=== PATIENT | female | born 1950 | race Caucasian/White ===

== ENCOUNTER → 2025-02-09 | Outpatient (CLI) | payer SELFPAY ==
--- NOTE | 2025-02-09 11:39 | MRI_ITS ---
PROCEDURE: SPINE LUMBAR (ROUTINE) 02/09/2025 REASON FOR EXAM: PAIN TECHNIQUE: Multiplanar and multisequence images were obtained without IV contrast administration. COMPARISON: X-ray 01/23/2025 FINDINGS: Vertebrae: No acute fracture. Alignment: Anatomic alignment. Conus Medullaris: L2. L1-2: Unremarkable L2-3: Unremarkable L3-4: Mild bilateral facet hypertrophy and moderate ligamentum flavum hypertrophy. Mild bilobed disc protrusion produces mild spinal stenosis and mild bilateral neural foraminal stenosis. L4-5: Moderate bilateral facet hypertrophy and severe ligamentum flavum hypertrophy. 2 mm of anterolisthesis of L4 on L5 with a moderate broad disc protrusion produces severe spinal stenosis and moderate bilateral neural foraminal stenosis with abutment of the exiting L4 nerve roots bilaterally. L5-S1: Moderate bilateral facet hypertrophy and mild ligamentum flavum hypertrophy. 2 mm of anterolisthesis of L5 on S1 with a mild broad disc protrusion produces mild spinal stenosis and moderate bilateral neural foraminal stenosis with abutment of the exiting L5 nerve roots bilaterally. Sacrum: Unremarkable. Moderate friction related edema of the posterior subcutaneous fat. MRI/Spine Lumbar (Routine) IMPRESSION: Degenerative disc disease as described above. Reading Location: [id number]
== END | disposition home or self-care (01) ==
PROVIDERS: PCP Orthopaedic Surgery; Referring Provider Student in an Organized Health Care Education/Training Program; Visit Provider Student in an Organized Health Care Education/Training Program
DX: M51.16 Intervertebral disc disorders with radiculopathy, lumbar region (principal)
CPT/HCPCS: 72148

== ENCOUNTER 2025-07-03 07:57 | Inpatient (IN) | payer OTHER, SELFPAY ==
--- NOTE | 2025-06-19 10:36 | PAT.ANESEVAL ---
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 When Was Last Pacemaker Check QUESTION #4 FULL TEXT: You/Your Family Experience fever (hyperthermia) with Anesthesia Last Oral Intake Last Oral intake: Last Oral Intake NPO since Meds taken in AM with sips of water? Meds patient instructed to take am of surgery PONV PONV - nuclear medicine officer: PONV - nuclear medicine officer Female Yes 06/19/25 08:30 HX of Motion Sickness No 06/19/25 08:30 HX of N/V After Surgery No 06/19/25 08:30 Non-Smoker Yes 06/19/25 08:30 Duration of Surgery greater Yes 06/19/25 08:30 than 60 minutes Number of Risk Factors 3 06/19/25 08:30 PONV Score Moderate Risk 06/19/25 08:30 Height & Weight Height & Weight: Anesthesia: Height & Weight Height 5 ft 01/23/25 10:03 Respiratory Assessment Respiratory Assessment - nuclear medicine officer: Respiratory Tract Infection Hx - nuclear medicine officer Hx Respiratory Tract Infection No 06/19/25 08:30 STOP Sleep Apnea STOP Sleep Apnea - nuclear medicine officer: STOP Sleep Apnea - nuclear medicine officer Hx Hypertension Yes: PER PT, CONTROLLED ON 06/19/25 08:30 MEDS Hx Sleep Apnea Yes: NO MACHINE 06/19/25 08:30 CPAP No 06/19/25 08:30 BIPAP No 06/19/25 08:30 Do you snore loudly (louder than talking or can be heard Do you often feel tired/ fatigued/ sleepy during daytime? Has anyone observed you stop breathing during sleep? STOP Results Positive 06/19/25 08:30 QUESTION #5 FULL TEXT : Do you snore loudly (louder than talking or can be heard through closed doors)? 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 Specify any problems Hx of Preganancy in last 3 No 06/19/25 08:30 Months Nurse Filling Out Transfusion MGRIFFITH 06/19/25 08:30 & Questions: Date: 06/19/25 06/19/25 08:30 Time: 08:34 06/19/25 08:30 Patient unable to answer at this time (ie. confused, unrespo /Reproduction History /Reproductive History - nuclear medicine officer: /Reproductive Hx- nuclear medicine officer Hx Now No 06/19/25 08:30 Gestational Age (in weeks): EDC: Hx Hx Para Hx Section SAB No 06/19/25 08:30 [facility] Medical History (Updated 06/19/25 @ 08:47 by Jacklyn Abdul) Wears glasses Wears dentures Post-menopausal Depression Arthritis Ambulates with cane High cholesterol History of DVT (deep vein thrombosis) Injury of back Essential tremor History of ulceration Sleep apnea Shortness of breath on exertion History of edema Non-smoker Hypertension delivery affecting High blood pressure Home Medications ?Medication ?Instructions ?Recorded ?Last Taken ?Type cholecalciferol (vitamin D3) 10 10 mcg PO QDAY supplement 01/23/25 Unknown History mcg (400 unit) capsule hydrochlorothiazide 12.5 mg capsule 12.5 mg PO QAM BLOOD PRESSURE 01/23/25 Unknown History duloxetine 60 mg capsule,delayed 60 mg PO DAILY DEPRESSION 06/19/25 Unknown History release potassium chloride 20 mEq 40 meq PO TID SUPPLEMENT 06/19/25 Unknown History tablet,extended release (K-Tab) simvastatin 40 mg tablet 40 mg PO DAILY HLD 06/19/25 Unknown History topiramate 50 mg tablet 50 mg PO DAILY ESSENTIAL TREMORS 06/19/25 Unknown History Allergy/AdvReac Type Severity Reaction Status Date / Time Cephalosporins Allergy Severe Hives Verified 06/19/25 08:19 Family History Mother No problems noted. Father No problems noted. Grandmother No problems noted. Grandfather No problems noted. Surgical History (Updated 06/19/25 @ 08:30 by Jacklyn Abdul) History of hysterectomy History of History of total right knee replacement (TKR) History of total left knee replacement (TKR) Hx of tonsillectomy Social History Smoking Status: Never smoker alcohol intake: never Audit: Pertinent Findings Pertinent Findings EKG Perinent findings: June 11, 2025. Normal sinus rhythm. Poor anterior R wave progression. Compared to EKG of October 2022, the QT has shortened. Recommendation Anesthesia Recommendation Anesthesia recommendation: F/U recommended (Potassium on June 11, 2025 is 2.8. Patient is getting supplemental potassium and will have a recheck done on June 20, 2025. Need to check results before surgery.)
[2025-06-21 13:18] LABS: Magnesium 2.3 mg/dL (1.5-2.2)
--- NOTE | 2025-06-21 16:57 | PAT.ANESEVAL ---
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 When Was Last Pacemaker Check QUESTION #4 FULL TEXT: You/Your Family Experience fever (hyperthermia) with Anesthesia Last Oral Intake Last Oral intake: Last Oral Intake NPO since Meds taken in AM with sips of water? Meds patient instructed to take am of surgery PONV PONV - licensed mass real estate appraiser: PONV - licensed mass real estate appraiser Female Yes 06/19/25 08:30 HX of Motion Sickness No 06/19/25 08:30 HX of N/V After Surgery No 06/19/25 08:30 Non-Smoker Yes 06/19/25 08:30 Duration of Surgery greater Yes 06/19/25 08:30 than 60 minutes Number of Risk Factors 3 06/19/25 08:30 PONV Score Moderate Risk 06/19/25 08:30 Height & Weight Height & Weight: Anesthesia: Height & Weight Height 5 ft 06/21/25 10:00 Respiratory Assessment Respiratory Assessment - licensed mass real estate appraiser: Respiratory Tract Infection Hx - licensed mass real estate appraiser Hx Respiratory Tract Infection No 06/19/25 08:30 STOP Sleep Apnea STOP Sleep Apnea - licensed mass real estate appraiser: STOP Sleep Apnea - licensed mass real estate appraiser Hx Hypertension Yes: PER PT, CONTROLLED ON 06/19/25 08:30 MEDS Hx Sleep Apnea Yes: NO MACHINE 06/19/25 08:30 CPAP No 06/19/25 08:30 BIPAP No 06/19/25 08:30 Do you snore loudly (louder than talking or can be heard Do you often feel tired/ fatigued/ sleepy during daytime? Has anyone observed you stop breathing during sleep? STOP Results Positive 06/19/25 08:30 QUESTION #5 FULL TEXT : Do you snore loudly (louder than talking or can be heard through closed doors)? 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 Specify any problems Hx of Preganancy in last 3 No 06/19/25 08:30 Months Nurse Filling Out Transfusion MGRIFFITH 06/19/25 08:30 & Questions: Date: 06/19/25 06/19/25 08:30 Time: 08:34 06/19/25 08:30 Patient unable to answer at this time (ie. confused, unrespo /Reproduction History /Reproductive History - licensed mass real estate appraiser: /Reproductive Hx- licensed mass real estate appraiser Hx Now No 06/19/25 08:30 Gestational Age (in weeks): EDC: Hx Hx Para Hx Section SAB No 06/19/25 08:30 [facility] Medical History Wears glasses Wears dentures Post-menopausal Depression Arthritis Ambulates with cane High cholesterol History of DVT (deep vein thrombosis) Injury of back Essential tremor History of ulceration Sleep apnea Shortness of breath on exertion History of edema Non-smoker Hypertension delivery affecting High blood pressure Home Medications ?Medication ?Instructions ?Recorded ?Last Taken ?Type cholecalciferol (vitamin D3) 10 10 mcg PO QDAY supplement 01/23/25 Unknown History mcg (400 unit) capsule hydrochlorothiazide 12.5 mg capsule 12.5 mg PO QAM BLOOD PRESSURE 01/23/25 Unknown History duloxetine 60 mg capsule,delayed 60 mg PO DAILY DEPRESSION 06/19/25 Unknown History release potassium chloride 20 mEq 40 meq PO TID SUPPLEMENT 06/19/25 Unknown History tablet,extended release (K-Tab) simvastatin 40 mg tablet 40 mg PO DAILY HLD 06/19/25 Unknown History topiramate 50 mg tablet 50 mg PO DAILY ESSENTIAL TREMORS 06/19/25 Unknown History Allergy/AdvReac Type Severity Reaction Status Date / Time Cephalosporins Allergy Severe Hives Verified 06/21/25 10:03 Family History Mother No problems noted. Father No problems noted. Grandmother No problems noted. Grandfather No problems noted. Surgical History History of hysterectomy History of History of total right knee replacement (TKR) History of total left knee replacement (TKR) Hx of tonsillectomy Social History Smoking Status: Never smoker alcohol intake: never Audit: Pertinent Findings HISTORY of Pertinent Findings History of Pertinent Findings: EKG Pertinent Findings EKG Perinent findings June 11, 2025. Normal 06/19/25 10:39 sinus rhythm. Poor anterior R wave progression. Compared to EKG of October 2022, the QT has shortened. Recommendation Anesthesia Recommendation Anesthesia recommendation: OPTIMIZED for anesthesia (Most recent potassium is 4.2. Patient is cleared for upcoming surgery.)
[2025-07-03] VITALS (16 sets, daily range): BP systolic 123–159; BP diastolic 61–111; PULSE 57–66; RESP 14–18; TEMP 36–36.8; O2SAT 96–100; BMI 46.4
[2025-07-03] MEDS: Magnesium 1 GM over 15 mins IV (08:47)
[2025-07-03] MEDS: Lactated Ringers 1,000 ML 15 ML IV (08:47)
--- NOTE | 2025-07-03 09:55 | PCM.HP.BLA ---
History and Physical Date of Admission: 07/03/25 MR#: [id number] Acct: [id number] Name: TAWANA DODGE Rep #: [id number] : 1950 Provider: Dr. Mohinder Ching MD Age/Sex: 74/F Location: [facility] [place] Status: Signed Intake Vital Signs 01/23/2510:03 06/21/2510:00 Height 5 ft 5 ft Weight: 234 lb 239 lb BMI 45.7 46.6 Intake Visit Reasons: lumbar spine Chief Complaint: Lumbar spine pre op Accompanied by: Daughter Is patient in pain?: Yes Pain scale (1-10): 8 Allergies Cephalosporins Allergy (Severe, Verified 06/21/25 10:03) Hives Medications ?Medication ?Instructions ?Recorded ?Confirmed ?Type cholecalciferol (vitamin D3) 10 10 mcg PO QDAY supplement 01/23/25 06/21/25 History mcg (400 unit) capsule hydrochlorothiazide 12.5 mg capsule 12.5 mg PO QAM BLOOD PRESSURE 01/23/25 06/21/25 History duloxetine 60 mg capsule,delayed 60 mg PO DAILY DEPRESSION 06/19/25 06/21/25 History release potassium chloride 20 mEq 40 meq PO TID SUPPLEMENT 06/19/25 06/21/25 History tablet,extended release (K-Tab) simvastatin 40 mg tablet 40 mg PO DAILY HLD 06/19/25 06/21/25 History topiramate 50 mg tablet 50 mg PO DAILY ESSENTIAL TREMORS 06/19/25 06/21/25 History Have you fallen in the past year?: No PFSH Medical History Wears glasses Wears dentures Post-menopausal Depression Arthritis Ambulates with cane High cholesterol History of DVT (deep vein thrombosis) Injury of back Essential tremor History of ulceration Sleep apnea Shortness of breath on exertion History of edema Non-smoker Hypertension delivery affecting High blood pressure Surgical History History of hysterectomy History of History of total right knee replacement (TKR) History of total left knee replacement (TKR) Hx of tonsillectomy Family History Mother No problems noted. Father No problems noted. Grandmother No problems noted. Grandfather No problems noted. Social History Smoking Status: Never smoker alcohol intake: never HPI lumbar spine Details: This documentation accurately reflects the service provided and the decisions made by me, Dr. Mohinder Ching MD 06/21/25 1000. Part of today?s visit was documented by Jennifer Lay MA, acting as scribe. TAWANA DODGE is a 74 year old F here today for lumbar spine pre op. Patient states that her pain is a 3 today. She would like to talk about the surgery and how long it will take. Patient would like to know what she is able to do after surgery and what she is not aloud to do. She states that she hasn't had any injections in her lower back. Her physical therapy was at her house, and she states that the physical therapy made her pain worse in the lower back. The patient is a 74-year-old female presenting with lumbar radiculopathy. She reports pain originating in the lower back, radiating down the leg, and extending to the ankle, but not affecting the foot or toes. The pain is primarily on the outer side of the leg and is associated with weakness and shakiness after walking short distances. The patient has a history of knee replacement surgery eight years ago, after which she initially stopped using a cane but resumed its use four years ago due to balance issues. She reports that balance problems have progressively worsened over the years, necessitating the use of a cane for stability. The patient also experiences essential tremors, for which she is on medication prescribed by her primary care physician. She has not been diagnosed with Parkinson's disease or any other neurological condition. Recently, the patient was found to have hypokalemia during preoperative blood work, which is being managed with potassium supplements. She was advised to monitor for symptoms such as chest pain and to ensure potassium levels are normalized before surgery. - Musculoskeletal: Reports lower back pain radiating to the leg, weakness, and shakiness after walking short distances. - Neurological: Reports tremors in hands, denies diagnosis of Parkinson's disease. - Cardiovascular: Denies chest pain, but advised to monitor for it due to hypokalemia. Attestation: Documentation on this patient encounter was supported using ambient scribe technology/ voice AI technology. The patient consented to recording for the purpose of documenting the encounter. Provider reviewed content of the generated note prior to signature. HPI from 01/23/25: TAWANA DODGE is a 74 year old F here today for lumbar spine pain. Patient states that she has had this for a long time. It has been gradually getting worse since she has gotten older. The pain is a constant pain that makes her weak. She can't stand for a long period of time. When she walks it feels like her left knee is giving out. The pain goes down into both hips then goes down the left leg. Patient denies any numbness or tingling. The pain wakes her up at night when it's really bad. Denies any back surgery or injections. Patient had therapy in October but it seems liked it aggravated her pain. Been using a cane for several years and helps with her back pain and balance. Had her knees replaced in 2004 and 2016. She has seen [facility] in the past for her knees. Pain goes into the left groin and down the lateral left leg and gets pain behind her knee. pain over the anterolateral lower leg to the big toe. Says that she can walk just a short distance before her pain gets worse and she needs to sit down. Says that this is typically related to just 30 to 50 feet. Takes ibuprofen over the counter with Tylenol with some benefit. No diabetes, no heart or lung issues, no blood thinners. Ortho Exam General General: Yes no acute distress Neurologic: Yes alert and Yes oriented x3 Psychologic: Yes reasonable and appropriate Spine SPINE TESTING CERVICAL THORACIC LUMBAR Musculoskeletal Strength 0=absent - 5=normal Details: Neurological exam of the lower extremities shows 5x5 power. Normal sensations across all dermatomes. No hyperreflexia. No midline tenderness, right paraspinal tenderness. Coding Level of Care Code Off vis,est,level 4 Diagnoses Lumbar stenosis with neurogenic claudication M48.062 Spondylolisthesis at L4-L5 level M43.16 Degeneration of intervertebral disc of lumbar region with discogenic back pain and lower extremity pain M51.362 Disc-related pain type: discogenic back pain and lower extremity pain Lumbar radiculopathy M54.16 Time Spent (min) 35 Assessment and Plan Assessment and Plan (1) Lumbar stenosis with neurogenic claudication: Status: Acute (2) Spondylolisthesis at L4-L5 level: Status: Acute (3) Degenerative disc disease, lumbar: Status: Acute Qualifiers: Disc-related pain type: discogenic back pain and lower extremity pain Qualified Code(s): M51.362 - Other intervertebral disc degeneration, lumbar region with discogenic back pain and lower extremity pain (4) Lumbar radiculopathy: Status: Acute Plan Again reviewed prior X-rays show a subtle L4 on L5 spondylolisthesis, multilevel disc height loss seen throughout her lumbar spine. There is also a subtle L2 on L3 retrolisthesis. Reviewed MRI from February 09, 2025 which showed L4-5 anterolisthesis with a moderate broad-based disc protrusion which produces severe spinal stenosis and moderate bilateral neuroforaminal stenosis. 1. Lumbar radiculopathy - Scheduled for lumbar spine surgery to relieve nerve compression. - Postoperative physical therapy planned to enhance mobility and balance. 2. Essential tremor - Managed with current medication. - Consider future neurologist referral if symptoms persist. 3. Hypokalemia - Managed with potassium supplements. - Ensure normalization of potassium levels before surgery. - Continue taking potassium supplements as prescribed to correct low potassium levels. - Monitor for symptoms such as chest pain and seek immediate medical attention if they occur. - Follow postoperative instructions, including engaging in physical therapy to improve mobility and balance. Explained the imaging findings in detail. Explained options today with the patient which includes further conservative treatment with physical therapy and pain management versus surgery. Discussed that surgery would involve a L4-5 fusion due to the spondylolisthesis. Discussed this procedure in detail and explained the risks, benefits and alternatives. The risks of surgery include but are not limited to infection, bleeding, injury to nerves or vessels, need for further surgery, ileus, vascular injury, visceral injury, DVT, pulmonary embolism, pneumonia, atelectasis, cardiopulmonary event, pseudoarthrosis, hardware failure, gait abnormality, adjacent segment degeneration. Discussed post-surgery restrictions in detail such as no bending, lifting, or twisting. Answered all questions to the patient?s satisfaction. Patient understands and agrees to proceed with surgery. Consent was signed.Follow up 2 week post operatively or sooner if pain, swelling, numbness or associated symptoms, or concerns develop. All questions answered. Patient in agreement of plan.
--- NOTE | 2025-07-03 10:04 | PRE.ANES_ITS ---
ASA Classification* ASA Classification ASA Classification: 3 Assessment & Plan Anesthesia* Anesthesia Assessment Anesthesia Assessment: Discussed sedation and/or anesthesia options, risks, benefits, and alternatives with patient/parents/legal guardian/POA. Questions invited. The patient/parents/legal guardian/POA seems to understand and agrees to proceed with anesthesia plan. Reviewed the physical assessment, medical history, allergy history and patient home medications list prior to surgery/procedure/anesthetic and documented any changes. Performed airway and anesthesia risk assessments. Anesthesia Type Anesthesia Type: General History Source History Obtained from:: Patient and Chart Anesthesia Focused Assessment* Temperature: 98.2 F Pulse Rate: 66 Blood Pressure: 130/69 Respiratory Rate: 18 Pulse Ox: 96 Oxygen Delivery Method: Room Air Airway Assessment Mouth opens: >3 cm Mallampati Score: III Teeth Condition: Dentures (Patient had full upper and lower dentures which are out.) Neck Range of motion (ROM): Limited ROM (Severe Restriction) Labs Anesthesia Preop lab: CBC CHEMISTRY Magnesium 2.3 mg/dL (1.5-2.2) H 06/21/25 11:25 06/21/25 POC Glucose 160 mg/dL (74-106) H 07/03/25 08:49 07/03/25 COAG Pre-Assessment Diagnosis/Proposed Procedure Planned Operative Procedure(s): ERAS, 360 Lumbar Fusion L4-5 Anesthesia History Anesthesia History - sap solution manager consultant: Anesthesia History - sap solution manager consultant Hx Hospitalization No 06/19/25 08:30 Any Problems With Anesthesia No 06/19/25 08:30 Cholinesterase deficiency No 06/19/25 08:30 You/Your Family Experience No 06/19/25 08:30 fever (hyperthermia) with Relationship Recent Exposure to Contagious No 07/03/25 08:34 Disease Does patient have nerve No 06/19/25 08:30 stimulator Patient instructed to have device shut off --Does patient have Pacemaker No 07/03/25 08:34 or ICD? When Was Last Pacemaker Check QUESTION #4 FULL TEXT: You/Your Family Experience fever (hyperthermia) with Anesthesia Last Oral Intake Last Oral intake: Last Oral Intake NPO since 18:30 07/03/25 08:34 Meds taken in AM with sips of No 07/03/25 08:34 water? Meds patient instructed to take am of surgery Any additional information?: Yes NPO since: 06:00 (Patient took her preop Ensure at 6 AM.) PONV PONV - sap solution manager consultant: PONV - sap solution manager consultant Female Yes 06/19/25 08:30 HX of Motion Sickness No 06/19/25 08:30 HX of N/V After Surgery No 06/19/25 08:30 Non-Smoker Yes 06/19/25 08:30 Duration of Surgery greater Yes 06/19/25 08:30 than 60 minutes Number of Risk Factors 3 06/19/25 08:30 PONV Score Moderate Risk 06/19/25 08:30 Height & Weight Height & Weight: Anesthesia: Height & Weight Height 4 ft 11.84 in 07/03/25 08:34 Weight: 107.3 kg 07/03/25 08:34 Body Mass Index (BMI) 46.4 07/03/25 08:34 Respiratory Assessment Respiratory Assessment - sap solution manager consultant: Respiratory Tract Infection Hx - sap solution manager consultant Hx Respiratory Tract Infection No 06/19/25 08:30 STOP Sleep Apnea STOP Sleep Apnea - sap solution manager consultant: STOP Sleep Apnea - sap solution manager consultant Hx Hypertension Yes: PER PT, CONTROLLED ON 06/19/25 08:30 MEDS Hx Sleep Apnea Yes: NO MACHINE 06/19/25 08:30 CPAP No 06/19/25 08:30 BIPAP No 06/19/25 08:30 Do you snore loudly (louder than talking or can be heard Do you often feel tired/ fatigued/ sleepy during daytime? Has anyone observed you stop breathing during sleep? STOP Results Positive 06/19/25 08:30 QUESTION #5 FULL TEXT : Do you snore loudly (louder than talking or can be heard through closed doors)? Tobacco Use History Tobacco Use History - sap solution manager consultant: Tobacco Use History - sap solution manager consultant Tobacco Use Smoking Status Never smoker 06/19/25 08:30 Hx Tobacco Use No 06/19/25 08:30 Years Smoking Packs Smoked per Day Smoking Cessation Date was within the last 15 years Hx Smoking Cessation Date Hx Smoking Cessation Counseling Hematologic Medial History Hematologic Hx - sap solution manager consultant: Hematologic Medical Hx - special agent fbi Hx of Blood Transfusion Yes 06/19/25 08:30 Hx of Transfusion in last 3 No 06/19/25 08:30 Months Date of Last Transfusion (if within last 3 months) Ever experience any problems No 06/19/25 08:30 with transfusion(s)? Specify any problems Hx of Preganancy in last 3 No 06/19/25 08:30 Months Nurse Filling Out Transfusion MGRIFFITH 06/19/25 08:30 & Questions: Date: 06/19/25 06/19/25 08:30 Time: 08:34 06/19/25 08:30 Patient unable to answer at this time (ie. confused, unrespo /Reproduction History /Reproductive History - sap solution manager consultant: /Reproductive Hx- sap solution manager consultant Hx Now No 06/19/25 08:30 Gestational Age (in weeks): EDC: Hx Hx Para Hx Section SAB No 06/19/25 08:30 Active Medications Active Medications: Current Medications Generic Name Dose Route Start Last Admin Trade Name Freq PRN Reason Stop Dose Admin Clindamycin Phosphate 900 mg in 50 mls @ 75 mls/hr 07/03/25 10:00 Cleocin IV 07/03/25 10:39 INTRAOP ONE Tranexamic Acid 1,000 mg/ 110 mls @ 440 mls/hr 07/03/25 10:00 Sodium Chloride IV 07/03/25 10:14 INTRAOP ONE Tranexamic Acid 1,000 mg/ 110 mls @ 440 mls/hr 07/03/25 10:00 Sodium Chloride IV 07/03/25 10:14 INTRAOP ONE Magnesium Sulfate 1 gm/ 102 mls @ 408 mls/hr 07/03/25 10:00 07/03/25 09:46 Dextrose IV 07/03/25 10:14 Infused PREOP ONE Infusion Lactated Ringer's 1,000 mls @ 15 mls/hr 07/03/25 08:15 07/03/25 08:47 IV 15 mls/hr .Q48H FRANKLIN Administration Insulin Human Lispro 1 - 6 unit 07/03/25 10:00 Insulin Lispro 100 Unit/Ml Insuln.Pen SC Q4H PRN PRN BG>/= 180, SEE PROTOCOL Protocol PFSH Medical History Wears glasses Wears dentures Post-menopausal Depression Arthritis Ambulates with cane High cholesterol History of DVT (deep vein thrombosis) Injury of back Essential tremor History of ulceration Sleep apnea Shortness of breath on exertion History of edema Non-smoker Hypertension delivery affecting High blood pressure Home Medications ?Medication ?Instructions ?Recorded ?Last Taken ?Type cholecalciferol (vitamin D3) 10 10 mcg PO QDAY supplem ent 01/23/25 07/02/25 History mcg (400 unit) capsule hydrochlorothiazide 12.5 mg capsule 12.5 mg PO QAM BLO OD PRESSURE 01/23/25 07/02/25 History duloxetine 60 mg capsule,delayed 60 mg PO DAILY DEPRES RAMIREZ 06/19/25 07/02/25 History release potassium chloride 20 mEq 40 meq PO TID SUPPLEMENT 12/1207/02/25 History tablet,extended release (K-Tab) simvastatin 40 mg tablet 40 mg PO DAILY HLD 06/19/25 07/02/25 History topiramate 50 mg tablet 50 mg PO DAILY ESSENTIAL DK MORS 06/19/25 07/02/25 History Allergy/AdvReac Type Severity Reaction Status Date / Time Cephalosporins Allergy Severe Hives Verified 06/21/25 10:03 Family History Mother No problems noted. Father No problems noted. Grandmother No problems noted. Grandfather No problems noted. Surgical History History of hysterectomy History of History of total right knee replacement (TKR) History of total left knee replacement (TKR) Hx of tonsillectomy Social History Smoking Status: Never smoker alcohol intake: never Review of Systems (Anesthesia) ROS Narrative System reviewed and no additional complaints, except as documented.
--- NOTE | 2025-07-03 10:19 | RAD_ITS ---
PROCEDURE: LUMBAR SPINE 2 OR 3 VIEWS 07/03/2025 REASON FOR EXAM: 360 FUSION L4-5 TECHNIQUE: Procedure Code: RADSPLL Modality: DX Procedure: LUMBAR SPINE 2 OR 3 VIEWS Fluoroscopy time: 43 seconds Total images: 14 COMPARISON: July 04, 2025 FINDINGS: Fluoroscopic spot images were obtained over the lower lumbar spine. It is assumed that there are 5 lumbar type vertebral bodies. Initial images show localization of the L4/5 disc space. Subsequent imaging shows disc spacer placement followed by an anterior screw. Then, pedicle screws and rods were placed at L4 and L5. Alignment is anatomic. RAD/Lumbar Spine 2 or 3 Views IMPRESSION: Fluoroscopic localization and guidance. Correlate with procedural note. Reading Location: [id number]
[2025-07-03] MEDS: Midazolam 2 MG/2 ML Syringe IV (10:52)
[2025-07-03] MEDS: Lidocaine 1% (5 ml sdv) 5 ML Vial 10 ML IV (10:58)
[2025-07-03] MEDS: PROPOFOL 204.33 MG IV (11:00)
[2025-07-03] MEDS: fentaNYL 100 MCG/2 ML Ampul 200 MCG IV (13:29)
[2025-07-03] MEDS: TRANEXAMIC ACID 1,000 MG/10 ML ML 2000 MG IV (14:00)
--- NOTE | 2025-07-03 14:44 | PCM.OPRPT ---
Procedures Musculoskeletal [id number]: Other Procedure See Report Operative Report (Standard) Operative Information Date of Procedure: 07/03/25 Pre-Operative Diagnosis: L4-5 spondylolisthesis, stenosis with neurogenic claudication Post-Operative Diagnosis: Same Surgery/Procedure Performed: L4-5 oblique lumbar lumbar fusion plaster patternmaker: Yes Zipper Machine Operator: Elizabeth Carpenter Tasks completed by assisted living housekeeper: Closing, Removing tissue, Hemostasis: Electrocautery and Retracting Type of Anesthesia: General RN Documented Start/Stop Times: Operation Date: 07/03/25 10:00 Case Time Into Pre-Op 07/03/25 08:08 Out of Pre-Op 07/03/25 10:51 Anesthesia Start 07/03/25 10:52 Into Room 07/03/25 10:52 Procedure Start 07/03/25 11:37 Procedure End 07/03/25 14:26 Anesthesia End 07/03/25 14:36 Out of Room 07/03/25 14:36 Procedure Start Time: 11:37 Procedure Stop Time: 14:26 Select all DRAINS/GRAFTS/IMPLANTS that apply: Graft Graft details: Allograft cancellous chips, autologous iliac crest bone marrow aspirate and Implanted device Implanted device details: DePuy cougar lateral lumbar interbody cage?peek Estimated Blood Loss: 100 cc Specimen collected: No Description of surgery: Preoperative diagnosis: L4-5 spondylolisthesis, disc degeneration, stenosis with neurogenic claudication Postoperative diagnosis: Same Name of procedures L4-5 oblique lumbar interbody fusion (OLIF), minimally invasive left sided approach, lateral decubitus: ? L4-5 anterolateral spinal fusion ? L4-5 insertion of cage ? Bone graft aspirate left iliac crest separate incision ? Allograft cancellous chips Attending Surgeon: Dr. Mohinder Ching Estimated blood loss: 100 mL Anesthesia: General Complications: None Indications: Patient is a 74-year-old pleasant lady who has had a long history of low back pain and left lower extremity radiation, difficulty walking distances. Xrays & MRI revealed L4-5 spondylolisthesis, severe stenosis. After undergoing a prolonged period of nonoperative treatment, the patient elected to undergo surgical decompression & fusion. All surgical options were discussed with the patient including anterior and posterior approaches. All risks and benefits associated with the procedure were explained to the patient. The risks include but are not limited to infection, bleeding, injury to nerves and vessels including major vessels like IVC and aorta, persistent paresthesia, persistent pain, dural tear, need for further procedures, adjacent segment degeneration, pseudoarthrosis, hardware failure, retrograde ejaculation, paralytic ileus, etc. Procedure: The patient was identified in the preoperative holding suite using Unique patient identifiers. Skin was marked, consent was reviewed, and all questions were answered. The patient was then brought back to the operative room. A surgical timeout was performed to make sure correct procedure was being done on the correct patient and all operative room staff were on the same page. General endotracheal anesthesia was then given to the patient. Sommers catheter was inserted. The patient was then carefully positioned in right lateral decubitus position with the left side up on a regular OR table. Axillary roll was placed and all bony prominences were well- padded. Hip positioners were placed in the posterior buttocks and anterior sternal area. The surgical area was prepped and draped in usual fashion. Preoperative antibiotic was injected IV as preoperative antibiotic. A final timeout was then again done just before starting the procedure. A 2 inch incision oblique was taken in the left lower quadrant of the abdomen 2 fingerbreadths away from the iliac crest and the lower ribs. Sharp dissection with Bovie was carried out up to the fascia covering the external oblique. The external oblique, internal oblique and transversus abdominis muscles were split along the muscle fibers and retroperitoneal space was entered. Sponge sticks were utilized to move the bowel and peritoneum [id number]-way and psoas muscle was exposed staying within the retroperitoneal plane. appAttachframe retractor system was positioned and the retractor blade was applied onto the psoas. The interval between psoas and midline structures was developed and appropriate retractors were placed. Once adequate interval was cleared, a disc space was identified and a marker x-ray was taken. This identified the L4-5 disc level. The prepsoas interval was then traced inferiorly. Annulotomy was done with a long handled knife. Pituitary was used to remove disc material. Curettes were used to prepare the endplates. Disc space spreaders were utilized to distract and increase the disc height. Near complete discectomy was performed. Smaller disc distractors were also used to bluntly perform a contralateral annulotomy. Trials of serially increasing sizes were used. A Jamshidi needle was used to aspirate bone marrow from the left anterior iliac crest through a separate incision and this aspirate was mixed with the allograft bone chips. A Depuy Mantee cage of size of the 18 x 50 x 12 mm with 15 degrees lordosis was packed with corticocancellous allograft bone chips mixed with bone marrow aspirate. This was inserted into the L4-5 disc space. Some bone chips were also packed around the cages. Screw with washer was placed into the lower L4 body with a washer partially covering the cage at L4-5. Hemostasis was confirmed. The retractor blades were removed. Closure was done in layers with a continuous strand of # 1 Vicryl in all muscle layers. 2-0 Vicryl was used for subcutaneous tissue and 4-0 for Monocryl for the skin. Steri-Strips were applied and 4 x 4 gauze and Tegaderm were applied. Grounds Foreman Elizabeth Carpenter PA-C. My physician assistant spa director was a vital part of this case. They were important in appropriate retraction during the case, and protection of soft tissues during the procedure. Their intimate knowledge of the case and my steps aided in safe and expedient completion of the procedure as well as appropriate position of the patient during the surgery. They were also vital in assisting with closure under my direct supervision. Surgical Findings: See operative note Complications Complications: No
--- NOTE | 2025-07-03 14:47 | PCM.POST.ANE ---
Anesthesia: Postop Eval I Current Vital Signs Temperature: 96.8 F Pulse Rate: 59 Blood Pressure: 132/61 Respiratory Rate: 16 Pulse Ox: 100 Oxygen Delivery Method: Room Air Assessment Airway patent: Yes Spontaneous unlabored respirations: Yes Mental status: Awake and Calm nausea: No Vomiting: No Anesthesia Complication: No Fluid Hydration Crystalloid volume administer (ml): 1,500 Total IV fluid infused: 1,500 Progress Note Anesthesia document: Postop Eval 1 completed: No
--- NOTE | 2025-07-03 14:52 | PCM.OPRPT ---
Procedures Musculoskeletal 20xxx-29xxx: Other Procedure See Report Operative Report (Standard) Operative Information Date of Procedure: 07/03/25 Pre-Operative Diagnosis: L4-5 spondylolisthesis, stenosis with neurogenic claudication Post-Operative Diagnosis: Same Surgery/Procedure Performed: L4-5 posterior spinal instrumented fusion sports management internship: Yes Hat Maker: Elizabeth Carpenter Tasks completed by heel sprayer first: Closing, Removing tissue, Implanting device, Hemostasis: Electrocautery and Retracting Type of Anesthesia: General RN Documented Start/Stop Times: Operation Date: 07/03/25 10:00 Case Time Into Pre-Op 07/03/25 08:08 Out of Pre-Op 07/03/25 10:51 Anesthesia Start 07/03/25 10:52 Into Room 07/03/25 10:52 Procedure Start 07/03/25 11:37 Procedure End 07/03/25 14:26 Anesthesia End 07/03/25 14:36 Out of Room 07/03/25 14:36 Procedure Start Time: 11:37 Procedure Stop Time: 14:26 Select all DRAINS/GRAFTS/IMPLANTS that apply: Graft Graft details: Allograft cancellous chips and Implanted device Implanted device details: DePuy Stream5er prime pedicle screw instrumentation Estimated Blood Loss: 100 cc Specimen collected: No Description of surgery: Preoperative diagnosis: L4-5 spondylolisthesis, disc degeneration, stenosis with neurogenic claudication Postoperative diagnosis: Same Name of procedures: L4-5 posterior percutaneous pedicle screw instrumented fusion, prone: ? L4-5 posterior spinal fusion 22721 ? L4-5 posterior pedicle screw instrumentation [id number] ? Allograft cancellous chips [id number] Attending Surgeon: Dr. Mohinder Ching Estimated blood loss: 100 mL (total for entire case) Anesthesia: General Complications: None Description of procedure: After the anterior procedure was complete, the patient was then turned supine. The patient was then transferred to Kyle table in prone position. Back was prepped and draped in usual fashion. C-arm AP view was then taken. C-arm was positioned in a way that L4 was centralized and superior endplate of was parallel to the beam. Spinous process was centered between the pedicles. Midline was marked with skin marker and lateral borders of the pedicles were also marked. Skin marker was also utilized to man transversely across the middle of the pedicles at L4. 2 longitudinal paramedian incisions of 1 inch were placed. The fascia was incised vertically. Finger dissection was utilized to palpate the transverse process and facet joint. Viper Prime screws with towers were inserted and docked onto the transverse processes. This was then slowly moved medially to reach the superior articular process of L4. This was then confirmed on C-arm and then a mallet was utilized to drive the trocar into the pedicle going up to the medial wall of the pedicle on AP view. This was performed both sides. C-arm lateral view confirmed that the tip of the trocar was in the vertebral body, and the screw was advanced into the pedicle and vertebral body. This was repeated similarly at L5 bilaterally. Screw sizes were 7 x 45 mm at L4 and L5 on both sides. 40 mm precontoured titanium 5.5 mm lordotic darlnig on the right and 45 mm on the left were then passed through the screw extensions and reduced down to the screws with the help of [employer] Viper instrumentation system on both sides. AP and lateral view of the C-arm showed good positioning of the screws and cages. Final tightening with the torque screwdriver was then completed. Adel was utilized to roughen the facet joint at L4-5 on the right side. Cancellous allograft bone chips mixed with bone marrow aspirate were then placed over this decorticated area. Hemostasis was achieved. Closure was done in layers with 0 Vicryls for the fascia, 2-0 Vicryls for the subcutaneous tissue, and Monocryl for the skin. Dermabond was applied. Dressings were applied covered with Tegaderm. The patient was then turned supine onto a hospital bed. The patient was extubated and taken to PACU in stable condition. The patient tolerated the procedure well and no complications occurred. Depuy Hornbeck cage & Viper Prime minimally invasive pedicle screw instrumentation system was utilized in this case. No dural tear was identified intraoperatively. I was present for the entirety of the case and performed the surgery. Senior Director Of [employer] Elizabeth Carpenter PA-C. My physician physician's assistant was a vital part of this case. They were important in appropriate retraction during the case, and protection of soft tissues during the procedure. Their intimate knowledge of the case and my steps aided in safe and expedient completion of the procedure as well as appropriate position of the patient during the surgery. They were also vital in assisting with closure under my direct supervision. Surgical Findings: See operative note Complications Complications: No
--- NOTE | 2025-07-03 17:22 | POSTOPAN2_ITS ---
Anesthesia Postop Eval I Sum Postop Eval Completion status Anesthesia document: Postop Eval 1 completed: No Anesthesia Postop Eval I Summary Anesthesia Postop Eval I Summary: Anesthesia Postop Eval I: Assessment Summary Airway patent Yes 07/03/25 14:49 COMPENSATION BUSINESS [email or web address] Spontaneous unlabored Yes 07/03/25 14:49 COMPENSATION BUSINESS PARTNER.[email or web address] respirations Mental status Awake,Calm 07/03/25 14:49 COMPENSATION BUSINESS [email or web address].[email or web address] nausea No 07/03/25 14:49 COMPENSATION BUSINESS [email or web address].[email or web address] Vomiting No 07/03/25 14:49 COMPENSATION BUSINESS [email or web address].[email or web address] Anesthesia Postop Eval I: Fluid Summary Crystalloid volume administer 1,500 07/03/25 14:49 COMPENSATION BUSINESS [email or web address].[email or web address] (ml) Colloids volume administered ( ml) Blood Product volume administered (ml) Total IV fluid infused 1,500 07/03/25 14:49 COMPENSATION BUSINESS [email or web address].[email or web address] Anesthesia Postop Eval I: Summary Notes Anesthesia Complication No 07/03/25 14:49 COMPENSATION BUSINESS [email or web address].[email or web address] Anesthesia Complication Comment: Post-operative progress note Anesthesia: Postop Eval II Evaluation Mental status: Awake and Calm Pain Level: 2 nausea: No Vomiting: No Complications Anesthesia Complication: No
--- NOTE | 2025-07-03 17:22 | PCM.POSTANE2 ---
Anesthesia Postop Eval I Sum Postop Eval Completion status Anesthesia document: Postop Eval 1 completed: No Anesthesia Postop Eval I Summary Anesthesia Postop Eval I Summary: Anesthesia Postop Eval I: Assessment Summary Airway patent Yes 07/03/25 14:49 [email or web address] Spontaneous unlabored Yes 07/03/25 14:49 [email or web address].[email or web address] respirations Mental status Awake,Calm 07/03/25 14:49 [email or web address].[email or web address] nausea No 07/03/25 14:49 [email or web address].[email or web address] Vomiting No 07/03/25 14:49 [email or web address].[email or web address] Anesthesia Postop Eval I: Fluid Summary Crystalloid volume administer 1,500 07/03/25 14:49 [email or web address].[email or web address] (ml) Colloids volume administered ( ml) Blood Product volume administered (ml) Total IV fluid infused 1,500 07/03/25 14:49 [employer].[email or web address] Anesthesia Postop Eval I: Summary Notes Anesthesia Complication No 07/03/25 14:49 [email or web address].[email or web address] Anesthesia Complication Comment: Post-operative progress note Anesthesia: Postop Eval II Evaluation Mental status: Awake and Calm Pain Level: 2 nausea: No Vomiting: No Complications Anesthesia Complication: No
[2025-07-03] MEDS: Clindamycin 900 MG/50 ML BAG 75 MG IV (18:28)
[2025-07-03] MEDS: Senna/Docusate Sodium 1 Tablet 2 TABLET PO (20:51)
--- NOTE | 2025-07-03 20:56 | CON.PCM.HO_ITS ---
Assessment & Plan Assessment/Plan (1) Degenerative disc disease, lumbar: QUALIFIERS: Disc-related pain type: discogenic back pain and lower extremity pain Qualified Code(s): M51.362 - Other intervertebral disc degeneration, lumbar region with discogenic back pain and lower extremity pain PLAN: Plan #Hypertension - Continue home hydrochlorothiazide # Hyperlipidemia - Continue home statin #Depression/anxiety -Continue home medications # History of essential tremors - Continue home topiramate # L4-5 spondylolisthesis, stenosis with neurogenic claudication -s/pL4-5 oblique lumbar lumbar fusion with Dr. Ching 07/03/25 - Management/pain management per primary #DVT ppx: Timing and agent discretion of primary Marisol Martinez MD Time spent in the patient's overall evaluation, decision-making process, review of diagnostic data, adjustment of management, discussion with other providers, nursing and ancillary staff involved in patient's care documentation, 12 Minutes HPI Consult Data Date of Consult: 07/03/25 HPI Narrative Reason for Consultation: Postoperative medical management HPI Narrative: TAWANA DODGE, is a 74-year-old female history of hypertension, essential tremors, hyperlipidemia, depression presented to [facility] 07/03/2025 for a L4-5 posterior spinal instrumented fusion. Hospitalist consulted for postoperative medical management. Pt evaluated at bedside. Reports she tolerated her liquid diet well postoperatively, no nausea or abdominal pain, about to try to pee, no shortness of breath, no other new acute complaints [facility] Medical History Wears glasses Wears dentures Post-menopausal Depression Arthritis Ambulates with cane High cholesterol History of DVT (deep vein thrombosis) Injury of back Essential tremor History of ulceration Sleep apnea Shortness of breath on exertion History of edema Non-smoker Hypertension delivery affecting High blood pressure Home Medications ?Medication ?Instructions ?Recorded ?Last Taken ?Type cholecalciferol (vitamin D3) 10 10 mcg PO QDAY supplem ent 01/23/25 07/02/25 History mcg (400 unit) capsule hydrochlorothiazide 12.5 mg capsule 12.5 mg PO QAM BLO OD PRESSURE 01/23/25 07/02/25 History duloxetine 60 mg capsule,delayed 60 mg PO DAILY DEPRES RAMIREZ 06/19/25 07/02/25 History release potassium chloride 20 mEq 40 meq PO TID SUPPLEMENT 12/1207/02/25 History tablet,extended release (K-Tab) simvastatin 40 mg tablet 40 mg PO DAILY HLD 06/19/25 07/02/25 History topiramate 50 mg tablet 50 mg PO DAILY ESSENTIAL DK MORS 06/19/25 07/02/25 History Allergy/AdvReac Type Severity Reaction Status Date / Time Cephalosporins Allergy Severe Hives Verified 06/21/25 10:03 Family History Mother No problems noted. Father No problems noted. Grandmother No problems noted. Grandfather No problems noted. Surgical History History of hysterectomy History of History of total right knee replacement (TKR) History of total left knee replacement (TKR) Hx of tonsillectomy Social History Smoking Status: Never smoker alcohol intake: never ROS ROS Narrative ROS reviewed and pertinent positives and negatives as above Physical Exam Narrative General: Alert, no apparent distress HEENT: Atraumatic, normocephalic Eyes: Anicteric, normal conjunctiva, extraocular movements grossly intact Neck: Supple Respiratory: Clear to auscultation bilaterally, normal respiratory effort Cardiovascular: Regular rate and rhythm GI: Soft, nontender, nondistended Extremities: No edema Musculoskeletal: Moving all extremities Neuro: No overt focal neurological deficits Skin: No rashes appreciated Psych: Cooperative Lab / Micro Data Labs: Laboratory Results - last 24 hr 07/03/25 08:49: POC Glucose 160 H Charges/Coding Visit Charges Office Visits / Consults: 60044 OV L2 Est 10min
[2025-07-04 00:23] VITALS: BP 118/59; PULSE 70; RESP 15; TEMP 36.6; O2SAT 95
[2025-07-04] MEDS: Clindamycin 900 MG/50 ML BAG 75 MG IV (01:48)
[2025-07-04 01:56] VITALS: BP 117/65; PULSE 78; RESP 15; TEMP 36.4; O2SAT 93
[2025-07-04 05:13] LABS: Hematocrit 38.6 % (37-47); Hemoglobin 12.9 g/dL (12.0-15.0); Immature Granulocytes Count 0.070 X10^3/uL (0.0-0.0); Mean Corp Hgb Conc 33.4 g/dL (32-36); Mean Corpuscular Volume 90.6 fL (81-99); Mean Platelet Vol. 10.7 fl (6.2-12.0); NRBC Flagged by Analyzer 0 % (0-5); Platelet Count 191 K/mm3 (150-450); RBC Distribution Width CV 12.2 % (11.6-14.6); RBC Distribution Width SD 39.8 fl (35.1-43.9); Red Blood Count 4.26 M/mm3 (4.2-5.4); White Blood Count 15.7 K/mm3 (4.4-11.0)
[2025-07-04 05:26] VITALS: BP 107/54; PULSE 70; RESP 16; TEMP 36.6; O2SAT 95
[2025-07-04 06:12] LABS: Anion Gap 15 (5-15); BUN 18 mg/dL (4-19); BUN/Creat Ratio 23.3 RATIO (10-20); Calcium,Total 8.8 mg/dL (7.6-11.0); Carbon Dioxide 21.2 mmol/L (21.0-32.0); Chloride 103 mmol/L (98-108); Estimated Creatinine Clearance 70.46 ml/min (50-250); Glucose 144 mg/dL (70-99); Potassium 4.2 mmol/L (3.3-5.1)
--- NOTE | 2025-07-04 06:53 | PCM.PN.HOSP ---
Subjective Subjective Patient is a 75-year-old lady who underwent L4-5 posterior spinal instrumented fusion on account of L4-5 spondylolisthesis, stenosis with neurogenic claudication by Dr. Rome on 07/03/2025 Objective Data Objective Data Vital Signs: Vital Signs Temp Pulse Resp BP Pulse Ox O2 Del Method O2 Flow Rate 97.9 F 70 16 107/54 L 95 Room Air 2 07/04/25 05:07/04/25 05:07/04/25 05:07/04/25 05:07/04/25 05:07/04/25 05:07/03/25 20:14 Oxygen Flow Rate (L/min) 2 Oxygen Delivery Method Room Air Weight: 107.3 kg Body Mass Index (BMI) 46.4 Intake & Output: Intake and Output for Last 24 Hours 07/02/25 07/03/25 07/04/25 23:59 23:59 23:59 Intake Total 2545.5 / 2545.5 450 / 450 Output Total 350 / 350 Balance 2195.5 / 2195.5 450 / 450 Lab / Micro Data 07/04/25 04:49 07/04/25 04:49 Labs: Laboratory Results - last 24 hr 07/03/25 08:49: POC Glucose 160 H 07/04/25 04:49: WBC 15.7 H, RBC 4.26, Hgb 12.9, Hct 38.6, MCV 90.6, MCH 30.3, MCHC 33.4, RDW Std Deviation 39.8, RDW Coeff of Ponce 12.2, Plt Count 191, MPV 10.7, Immature Gran % (Auto) 0.400, Neut % (Auto) 85.9 H, Lymph % (Auto) 8.4 L, [place] % (Auto) 5.2, Eos % (Auto) 0.0, Baso % (Auto) 0.1, Absolute Neuts (auto) 13.5 H, Absolute Lymphs (auto) 1.32, Nucleated RBC % 0, Sodium 139, Potassium 4.2, Chloride 103, Carbon Dioxide 21.2, Anion Gap 15, BUN 18, Creatinine 0.76, Estim Creat Clear Calc 70.46, Est GFR (MDRD) Non-Af 83, BUN/Creatinine Ratio 23.3 H, Glucose 144 H, Calcium 8.8 Micro: Microbiology 06/21/25 11:26 Swab (Method) Nasal Screen MRSA/MSSA - Final Physical Exam Narrative GENERAL: cooperative HEENT: Atraumatic; normocephalic EYES; Anicteric, Normal Conjunctiva NECK; supple, normal thyroid, RESPIRATORY: Diminished to auscultation CARDIOVASCULAR: Regular S1 S2, GI: soft, normoactive bowel sounds, : No Renal angle tenderness; EXTREMITIES: No edema, no clubbing, MUSCULOSKELETAL: no muscle wasting NEURO: Awake; no lateralizing signs. SKIN: No Rash PSYCH; Flat affect Assessment & Plan Assessment/Plan (1) Degenerative disc disease, lumbar: QUALIFIERS: Disc-related pain type: discogenic back pain and lower extremity pain Qualified Code(s): M51.362 - Other intervertebral disc degeneration, lumbar region with discogenic back pain and lower extremity pain PLAN: Plan Patient is a 75-year-old lady who underwent L4-5 posterior spinal instrumented fusion on account of L4-5 spondylolisthesis, stenosis with neurogenic claudication by Dr. Rome on 07/03/2025 1. Status post L4-5 posterior spinal instrumented fusion on account of L4-5 spondylolisthesis, stenosis with neurogenic claudication by Dr. Rome on 07/03/2025. Patient postoperative orders regarding pain management PT OT DVT prophylaxis defer to primary service 2. Hypertension ? Blood pressure controlled, home medications continued with dose adjustment as needed 3. Dyslipidemia ?Patient is on statin therapy, continued at home dose 4. Depression with anxiety -did continue home meds duloxetine 5. Essential tremors ? Patient is on topiramate 6. Class III obesity with BMI of 46.4 ? Complicating care weight loss advised 7 DVT prophylaxis ? Defer to primary service Time spent in the patient's overall evaluation,decision-making process, review of diagnostic data, adjustment of management, discussion with other providers, nursing nursing and ancillary staff involved in patient's care documentation 35 Minutes Charges/Coding Visit Charges Inpatient E&M: 63766 Subs Hosp L2
--- NOTE | 2025-07-04 07:00 | RAD_ITS ---
PROCEDURE: LUMBAR SPINE 2 OR 3 VIEWS 07/04/2025 REASON FOR EXAM: STATUS POST LUMBAR FUSION TECHNIQUE: Procedure Code: RADSPLL Modality: DX Procedure: LUMBAR SPINE 2 OR 3 VIEWS COMPARISON: MRI on 02/09/2025. Fluoroscopic images on 07/03/2025. FINDINGS: Mild degenerative levoscoliosis apex at L3. Decompression and fusion at L4-L5 with unremarkable transpedicular screws. Grade 1 anterolisthesis of L4 on L5. Mildly exaggerated lumbar lordosis. There are diffuse spondylotic changes. Findings are demonstrated to by diffuse disc space narrowing, osteophyte formation and degenerative endplate sclerosis. There is diffuse facet joint arthropathy with secondary bilateral neural foramina narrowing. No fracture or dislocation is seen. No aggressive lytic or blastic bony lesion is noted. Calcified atheromatous plaques are noted. RAD/Lumbar Spine 2 or 3 Views IMPRESSION: Unremarkable spinal metallic hardware. Spondylosis. [facility]
[2025-07-04] MEDS: Senna/Docusate Sodium 1 Tablet 2 TABLET PO (08:37)
[2025-07-04 09:29] VITALS: O2SAT 95
--- NOTE | 2025-07-04 10:00 | CASEMGMT ---
07/04/25: Dx: ERAS, 360 Lumbar Fusion L4-5 Strata: 1 6 click: 19 No CM consult ordered. Medical record reviewed and patient evaluated for identification of discharge planning needs. Patient does not currently demonstrate a need for discharge planning by RN CM. PT/OT evals pending. CM to f/u with patient after these have been completed. CM will continue to be available for any discharge needs that may arise, and intervene as indicated. Drake BSN RN CM
[2025-07-04 10:03] VITALS: BP 104/56; PULSE 74; RESP 17; TEMP 36.3; O2SAT 96
--- NOTE | 2025-07-04 10:23 | DCINST_ITS ---
Discharge Instructions DC O2, CPAP, BIPAP needs Home O2 Discharge instructions: No Follow Up Care Test Results: Test results from this visit will be discussed in further detail at your follow- up appointment, if applicable. Discharge Plan Admission Admit Date/Time: 07/03/25 07:57 Attending Provider: Camilo Martinez Primary Care Provider: Mitzi Avila Consulting Providers: Marisol Martinez; Mohinder Ching Instructions Patient Instructions: Lumbar Fusion Dc Additional Instructions / Restrictions: Keep Tegaderm and gauze clean and dry. If Tegaderm is intact, okay to shower. After 5 days remove Tegaderm and gauze and cover with a Band-Aid. Replace Band- Aid daily thereafter. No bending lifting or twisting. Follow-up in clinic in 2 weeks. Discharge Orders/Prescriptions Prescriptions: New acetaminophen 500 mg Tablet 1,000 mg PO Q6H Qty: 30 0RF meloxicam 15 mg Tablet 15 mg PO DAILY Qty: 30 0RF Rx Instructions: Take once a day methocarbamol 500 mg Tablet 750 mg PO TID PRN (Reason: Pain/spasms) Qty: 60 0RF oxycodone 5 mg Tablet 2.5 - 5 mg PO Q6H PRN (Reason: pain) 7 Days Qty: 28 0RF sennosides-docusate sodium [Stimulant Laxative Plus] 8.6-50 mg Tablet 2 tab PO BID PRN (Reason: constipation) Qty: 14 0RF Continued cholecalciferol (vitamin D3) 10 mcg (400 unit) capsule 10 mcg PO QDAY hydrochlorothiazide 12.5 mg capsule 12.5 mg PO QAM simvastatin 40 mg tablet 40 mg PO DAILY topiramate 50 mg tablet 50 mg PO DAILY duloxetine 60 mg capsule,delayed release(DR/EC) 60 mg PO DAILY potassium chloride [K-Tab] 20 mEq tablet extended release 40 meq PO TID Referrals / Follow Up: Mitzi Avila MD [Primary Care Provider, Family Practice] Disposition Disposition (needs filled in before D/C Order can be placed): Home, Self Care
--- NOTE | 2025-07-04 10:23 | PCM.PN.ORT ---
Subjective Subjective Postop day 1 L4-5 fusion. Patient is doing well postoperatively with her pain well-managed. Patient says that she has been up and walking to the bathroom. Patient also reports that she has passed gas, plan to attempt solid food at breakfast. PT/OT has seen the patient today who has cleared her for home discharge. Seen with Dr. Ching. Objective Data Objective Data Vital Signs: Vital Signs Temp Pulse Resp BP Pulse Ox O2 Del Method O2 Flow Rate 97.4 F L 74 17 104/56 L 96 Room Air 2 07/04/25 10:03 07/04/25 10:03 07/04/25 10:03 07/04/25 10:03 07/04/25 10:03 07/04/25 10:03 07/03/25 20:14 Oxygen Flow Rate (L/min) 2 Oxygen Delivery Method Room Air Weight: 236 lb 8.896 oz Body Mass Index (BMI) 46.4 Intake & Output: Intake and Output for Last 24 Hours 07/02/25 07/03/25 07/04/25 23:59 23:59 23:59 Intake Total 2545.5 / 2545.5 450 / 450 Output Total 350 / 350 Balance 2195.5 / 2195.5 450 / 450 Lab / Micro Data 07/04/25 04:49 07/04/25 04:49 Labs: Laboratory Results - last 24 hr 07/04/25 04:49: WBC 15.7 H, RBC 4.26, Hgb 12.9, Hct 38.6, MCV 90.6, MCH 30.3, MCHC 33.4, RDW Std Deviation 39.8, RDW Coeff of Ponce 12.2, Plt Count 191, MPV 10.7, Immature Gran % (Auto) 0.400, Neut % (Auto) 85.9 H, Lymph % (Auto) 8.4 L, [place] % (Auto) 5.2, Eos % (Auto) 0.0, Baso % (Auto) 0.1, Absolute Neuts (auto) 13.5 H, Absolute Lymphs (auto) 1.32, Nucleated RBC % 0, Sodium 139, Potassium 4.2, Chloride 103, Carbon Dioxide 21.2, Anion Gap 15, BUN 18, Creatinine 0.76, Estim Creat Clear Calc 70.46, Est GFR (MDRD) Non-Af 83, BUN/Creatinine Ratio 23.3 H, Glucose 144 H, Calcium 8.8 Micro: Microbiology 06/21/25 11:26 Swab (Method) Nasal Screen MRSA/MSSA - Final Radiography Diagnostic Testing: Radiology Impression Lumbar Spine X-Ray 07/04/25 07:00 IMPRESSION: Unremarkable spinal metallic hardware. Spondylosis. Reading Location: [place] [id number] Physical Exam Narrative Neurological examination of the lower extremity shows 5X5 power. Normal sensation across all dermatomes. Physical examination of the back and belly shows Tegaderm and gauze CDI. Const alert, oriented x3 and no apparent distress Assessment & Plan Assessment/Plan (1) Status post lumbar spinal fusion: PLAN: Plan Postop day 1 L4-5 fusion. Obtained reviewed x-rays today which show hardware and bone graft in good position. PT/OT cleared. Patient has passed gas and has tolerated a solid meal. Plan for discharge home today, home-going meds include oxycodone, acetaminophen, meloxicam, methocarbamol, senna. OARRS reviewed. Reviewed and educated on the use of the incentive spirometer. Reviewed and educated on back precautions of no bending, lifting, twisting. She will follow-up in the clinic in 2 weeks. Patient is in agreement.
--- NOTE | 2025-07-04 12:25 | CASEMGMT ---
NITESH GALICIA NOTE: Discharge order is in. Therapy notes reviewed. Pt ambulated 70 ft w/use of WW w/PT, no therapy recommended. RN CM to room. Pt resting in bed, daughter Nicole @ bedside. Pt states she feels safe discharging home today. She lives in an apartment in the basement of Nicole's home and Nicole has been assisting her w/ADL's and IADL's prior to admission and will continue to do so. Pt states she has a walker @ home & denies any further DME needs. She is aware to f/u with Dr Ching in 2 weeks and can discuss any therapy needs at that time. Rx's have been sent to [facility] retail pharmacy. They would like [id number]. Pharmacy notified. Pt and Nicole deny having any further discharge needs or concerns. Drake LUNDBERG RN CM
--- NOTE | 2025-07-04 13:11 | CHAPLAIN ---
Type of Pastoral Visit _x__ Initial Visit ___ Follow-up Visit ___ On-call Visit ___ General Patient Visit ___ Spiritual Assessment ___ Family Conference ___ Bereavement ___ Rapid Response ___ Code Blue ___ Other (describe below) Pastoral Care Referral From _x__ Patient ___ Family ___ Nurse ___ Physician ___ Sap Bw Consultant ___ Ingot Header ___ Other (describe below) Sacrament/Intervention _x__ Active listening ___ Anointing ___ Rastafari ___ Bereavement ___ Communion ___ Ilene exploration ___ ___ Life review _x__ Prayer ___ Reconciliation ___ Sacrament of Sick ___ Supportive presence ___ Wedding ___ Other (describe below) Pastoral Comments patient is ready to be discharged; pt is encouraged by controlled pain levels; pt expresses gratitude for going home; pt says that a prayer would be very welcome; daughter is with her; both deny need for other support
[2025-07-04 14:15] VITALS: BP 107/60; PULSE 72; RESP 16; TEMP 36.7; O2SAT 98
--- NOTE | 2025-07-04 14:44 | PHA.DC_ITS ---
Pharmacy [facility] Counseling Pharmacy Service has performed discharge medication reconciliation and counseling for this patient. 1. ACETAMINOPHEN 1000MG PO Q6 2. MELOXICAM 15MG PO DAILY 3. METHOCARBAMOL 750MG PO TID PRN MUSCLE SPASMS 4. OXYCODONE 2.505MG PO Q6H PRN PAIN 5. SENNA/DOCUSATE 2T PO BID PRN CONSTIPATION The patient's discharge medication list was reviewed for discrepancies and discrepancies were resolved. The patient was counseled on the following discharge medications and changes in medications for homegoing were reviewed. The Reason for Use, instructions for use, and potential side effects were reviewed for all new medications. The patient's questions regarding all of their medications were answered. The patient was able to verbally demonstrate an understanding of their discharge medications. Medications at Discharge Home Medications cholecalciferol (vitamin D3) 10 mcg (400 unit) capsule 10 mcg PO QDAY supplement 01/23/25 hydrochlorothiazide 12.5 mg capsule 12.5 mg PO QAM BLOOD PRESSURE 01/23/25 duloxetine 60 mg capsule,delayed release 60 mg PO DAILY DEPRESSION 06/19/25 potassium chloride 20 mEq tablet,extended release (K-Tab) 40 meq PO TID SUPPLEMENT 06/19/25 simvastatin 40 mg tablet 40 mg PO DAILY HLD 06/19/25 topiramate 50 mg tablet 50 mg PO DAILY ESSENTIAL TREMORS 06/19/25 acetaminophen 500 mg tablet 1,000 mg (2 x 500 mg) PO Q6H #30 tabs 07/04/25 meloxicam 15 mg tablet 15 mg PO DAILY #30 tabs 07/04/25 methocarbamol 500 mg tablet 750 mg (1.5 x 500 mg) PO TID PRN Pain/spasms #60 tabs 07/04/25 oxycodone 5 mg tablet 2.5 - 5 mg (0.5 - 1 x 5 mg) PO Q6H PRN pain 7 days #28 tabs 07/04/25 sennosides 8.6 mg-docusate sodium 50 mg tablet (Stimulant Laxative Plus) 2 tab PO BID PRN constipation #14 tabs 07/04/25
== END 2025-07-04 15:29 | disposition home or self-care (01) | DRG 427 ==
LOC: ACINP 08:01 → MS3 14:54
PROVIDERS: Student in an Organized Health Care Education/Training Program; Admitting Provider Orthopaedic Surgery Orthopaedic Surgery of the Spine; PCP Student in an Organized Health Care Education/Training Program; Referring Provider Orthopaedic Surgery Orthopaedic Surgery of the Spine; Visit Provider Internal Medicine
PROC: 0SG00A0 Fusion of Lumbar Vertebral Joint with Interbody Fusion Device, Anterior Approach, Anterior Column, Open Approach (ICD-10-PCS; principal; 2025-07-03 09:30)
DX: M43.16 Spondylolisthesis, lumbar region (principal); Z68.42 Body mass index [BMI] 45.0-49.9, adult; E66.813 Obesity, class 3; I10 Essential (primary) hypertension; F32.A Depression, unspecified; M48.062 Spinal stenosis, lumbar region with neurogenic claudication; E78.00 Pure hypercholesterolemia, unspecified; G25.0 Essential tremor; E87.6 Hypokalemia; F41.9 Anxiety disorder, unspecified; G47.30 Sleep apnea, unspecified; M54.16 Radiculopathy, lumbar region; M51.362 Other intervertebral disc degeneration, lumbar region with discogenic back pain and lower extremity pain; Z86.718 Personal history of other venous thrombosis and embolism; Z79.899 Other long term (current) drug therapy
CPT/HCPCS: 36415; 72100; 76000; 80048; 82962; 83036; 83735; 85025; 86850; 86870; 86900; 86901; 87077; 87081; 94668; 97162; 97166; A4648; C1713; J2405; J3475